=== PATIENT | female | born 1950 | race Caucasian/White ===

== ENCOUNTER → 2018-07-01 06:59 | Outpatient (CLI) | payer OTHER ==
[~2018-07-01 06:59] MED LIST: CYMBALTA60 MG PO; ESTAZOLAM2 MG PO; LYRICA150 MG PO; SYNTHROID50 MCG PO; VASOTEC10 MG PO
== END | disposition home or self-care (01) ==
LOC: EKG 06:59
DX: R94.31 Abnormal electrocardiogram [ECG] [EKG] (principal)